=== PATIENT | female | born 1980 | race Caucasian/White ===

== ENCOUNTER 2016-12-24 14:22 | Emergency (ER) | payer OTHER ==
[~2016-12-24] VITALS: Ht 160 cm; Wt 59.0 kg
[2016-12-24 16:57] VITALS: BP 121/88
== END 2016-12-24 16:57 | disposition home or self-care (01) ==
LOC: EDBD 14:22 → ED 14:22
DX: R51 Headache (principal); M54.2 Cervicalgia; M54.9 Dorsalgia, unspecified; V39.49XA Driver of three-wheeled motor vehicle injured in collision with other motor vehicles in traffic accident, initial encounter; Y93.19 Activity, other involving water and watercraft; Y92.488 Other paved roadways as the place of occurrence of the external cause; Y99.8 Other external cause status